=== PATIENT | female | born 1975 | race Caucasian/White ===

== ENCOUNTER 2018-10-18 16:02 | Emergency (ER) | payer OTHER ==
[~2018-10-18] VITALS: Ht 162.6 cm; Wt 60.9 kg
[2018-10-18 16:24] VITALS: BP 121/59
[2018-10-18] MEDS ORDERED: SODIUM CHLORIDE FLUSH 10ML SYR IVF ONE (16:30)
[2018-10-18] MEDS ORDERED: MAGNESIUM PO (16:32)
[2018-10-18] MEDS ORDERED: BERBERINE (16:32)
[2018-10-18] MEDS ORDERED: MULT-658 PO (16:32)
[2018-10-18] MEDS ORDERED: LACT1CAP43 PO (16:32)
--- NOTE | 2018-10-18 16:32 | NUR ---
PT AMBULATORY TO ROOM. STATING SHE HAS PAIN IN RECTAL AREA FOR 1 WEEK. HAND BOBBIN CLEANER STUDENT AT BEDSIDE UPDATING PT ON POC. PT STATES SHE HAD ONE LOOSE BM THIS MORNING THAT DID NOT HAVE BLOOD IN IT, WAS BROWN. PT NOT SOB. PAIN IS 8/10 IN ANAL AREA AT THIS TIME. CALL LIGHT IN REACH. VSS. PT RESTING ON GURNEY. TEARFUL AT THIS TIME.
[2018-10-18 16:40] LABS: BASOPHILS # (AUTO) 0.09 x10^3/uL (0-0.1); BASOPHILS % (AUTO) 1 % (0-1); EOSINOPHILS # (AUTO) 0.15 x10^3/uL (0-0.4); EOSINOPHILS % (AUTO) 2 % (1-7); LYMPHOCYTES # (AUTO) 2.42 x10^3/uL (1-3.4); LYMPHOCYTES % (AUTO) 33 % (22-44); MD NO; MEAN CORPUSCULAR HEMOGLOBIN 33.4 pg (27.0-34.8); MEAN CORPUSCULAR HGB CONC 32.8 g/dL (32.4-35.8); MEAN CORPUSCULAR VOLUME 101.7 fL (80-100); MEAN PLATELET VOLUME 8.7 fL (7.4-10.4); MONOCYTES # (AUTO) 0.54 x10^3/uL (0.2-0.8); MONOCYTES % (AUTO) 7 % (2-9); NEUTROPHILS # (AUTO) 4.12 x10^3/uL (1.8-6.8); NEUTROPHILS % (AUTO) 56 % (42-75); PLATELET COUNT 272 x10^3/uL (130-400); RED BLOOD COUNT 3.98 x10^6/uL (3.82-5.3); RED CELL DISTRIBUTION WIDTH 12.5 % (9.6-15.2)
[2018-10-18] MEDS ORDERED: LIDOCAINE-MPF 1%, 5ML ONE (16:41)
[2018-10-18 16:53] LABS: ALBUMIN 4.1 g/dL (3.4-5.0); ANION GAP 7 mmol/L (5-15); CALCIUM 8.7 mg/dL (8.5-10.1); CHLORIDE 106 mmol/L (98-107)
[2018-10-18 16:58] LABS: CREATININE 0.76 mg/dL (0.55-1.02)
--- NOTE | 2018-10-18 17:02 | NUR ---
MD AND BOTTOM BRUSHER STUDENT AT BEDSIDE PERFORMING I AND D. PT TOLERATED WELL. CLEANED UP AND GIVEN PAD. NADN. VSS. CALL LIGHT IN REACH.
--- NOTE | 2018-10-18 17:23 | NUR ---
PT DRESSED AND READY TO DC.
== END 2018-10-18 17:40 | disposition home or self-care (01) ==
LOC: ED 17:34
DX: K64.5 Perianal venous thrombosis (principal)
CPT/HCPCS: 36415; 46050; 80048; 82040; 84703; 85025; 99284